=== PATIENT | male | born 1940 | race Caucasian/White ===

== ENCOUNTER 2018-01-29 15:30 | Outpatient (CLI) | payer MEDICARE | END 2018-01-29 15:31 | disposition home or self-care (01) | LOC: BICULT 15:30 | PROVIDERS: ATTEND Internal Medicine Nephrology | DX: I12.9 Hypertensive chronic kidney disease with stage 1 through stage 4 chronic kidney disease, or unspecified chronic kidney disease (principal); N18.3 Chronic kidney disease, stage 3 (moderate); N28.1 Cyst of kidney, acquired; N40.0 Benign prostatic hyperplasia without lower urinary tract symptoms | CPT/HCPCS: 76770 ==

== ENCOUNTER 2020-11-06 09:15 | Emergency (ER) | payer MEDICARE ==
[2020-11-06 10:20] LABS: #Basophils 0.1 thou/uL (0.0-0.2); #Lymphocytes 0.6 thou/uL (1.20-3.40); #Monocytes 0.7 thou/uL (0.11-0.59); #Neutrophils 12.3 thou/uL (1.40-6.50); %Basophils 0.4 % (0.0-1.0); %Eosinophils 0.1 % (0.0-10.0); %Lymphocytes 4.2 % (21.0-51.0); %Monocytes 5.1 % (0.0-10.0); %Neutrophils 90.1 % (42.0-75.0); Hemoglobin 13.6 g/dL (14.0-18.0); Mean Corpuscular HGB CONC 34.3 g/dL (32.0-36.0); Mean Corpuscular Hemoglobin 32.9 pg (27.0-31.0); Mean Platelet Volume 8.5 fL (7.4-10.4); Platelet Count 197 thou/uL (130-400); RBC Distribution Width 12.9 % (11.5-14.5); Red Blood Cell (RBC) Count 4.14 mill/uL (4.70-6.10); White Blood Cell (WBC) Count 13.7 thou/uL (4.8-10.8)
[2020-11-06 10:31] LABS: Bilirubin Negative (Negative); Blood, Urine Trace (Negative); Glucose, Urine (Dipstick) 100 mg/dL (Negative); Ketone, Urine Negative (Negative); Leukocyte Negative (Negative); Nitrite Negative (Negative); Protein, Urine (Dipstick) > or equal to 300 mg/dL (Neg-Trace); Specific Gravity, Urine 1.025 (1.005-1.030)
[2020-11-06 10:40] LABS: Clarity Hazy (Clear)
[2020-11-06 10:41] LABS: Bacteria/HPF None Seen HPF (None Seen); RBC/HPF None Seen HPF (0-3); Squamous Epithelial 0-3 HPF (0-3); WBC/HPF 0-3 HPF (0-3)
[2020-11-06 10:42] LABS: ALT (SGPT) 135 U/L (8-55); AST (SGOT) 189 U/L (5-34); Albumin 4.1 g/dL (3.4-4.8); Alkaline Phosphatase 181 U/L (40-110); Anion Gap 16 mmol/L (10-20); BUN (Urea Nitrogen) 29 mg/dL (8.4-25.7); Bilirubin, Total 1.2 mg/dL (0.2-1.2); Calc. Creatinine Clearance 0 mL/min (70-130); Calcium 9.5 mg/dL (7.8-10.44); Carbon Dioxide 25 mmol/L (23-31); Chloride 101 mmol/L (98-107); Globulin 3.3 g/dL (2.4-3.5); Glucose 189 mg/dL (83-110); Potassium 4.4 mmol/L (3.5-5.1); Protein, Total 7.4 g/dL (5.8-8.1); Sodium 138 mmol/L (136-145)
[2020-11-06 11:38] LABS: SARS-CoV-2 NAA Rapid Test Not Detected (NotDetected)
[2020-11-06] MEDS ORDERED: Dexamethasone 10 MG/ML VIAL ONE (11:57)
[2020-11-06] MEDS ORDERED: Doxycycline 100 MG CAP PO SCH (12:00)
--- NOTE | 2020-11-06 13:18 | RAD ---
AP CHEST: HISTORY: Cough and fever. COMPARISON: Exam from 2017. FINDINGS/IMPRESSION: Cardiomegaly. Mild vascular engorgement. Hazy infiltrates in the perihilar regions and in lower mo[place] g [place] is similar to 2017 and could represent mild edema, although superimposed inflammatory proces s cannot be excluded. There may be tiny effusions present. The pacemaker leads are unchanged. POS: [facility]W
[2020-11-06] MEDS ORDERED: Aspirin 325 MG TAB ONE (13:32)
[2020-11-06] MEDS ORDERED: Acetaminophen 500 MG TAB ONE (13:36)
== END 2020-11-06 13:47 | disposition home or self-care (01) ==
LOC: ERS 09:15
DX: J18.9 Pneumonia, unspecified organism (principal); I10 Essential (primary) hypertension; E11.9 Type 2 diabetes mellitus without complications; I48.91 Unspecified atrial fibrillation; J44.9 Chronic obstructive pulmonary disease, unspecified; Z20.828 Contact with and (suspected) exposure to other viral communicable diseases; Z79.899 Other long term (current) drug therapy; Z79.84 Long term (current) use of oral hypoglycemic drugs
CPT/HCPCS: 71045; 80053; 82553; 83605; 83880; 84484 ×2; 85025; 87040; 87804 ×2; 93005; U0002; 36415; 81003; 81015; J1100

== ENCOUNTER 2022-03-08 13:27 | Outpatient (CLI) | payer MEDICARE | END 2022-03-08 13:28 | disposition home or self-care (01) | LOC: BICULT 13:27 | PROVIDERS: ATTEND Internal Medicine | DX: N18.32 Chronic kidney disease, stage 3b (principal); N28.1 Cyst of kidney, acquired; N28.89 Other specified disorders of kidney and ureter | CPT/HCPCS: 76770 ==

== ENCOUNTER 2022-06-18 14:04 | Emergency (ER) | payer MEDICARE ==
[2022-06-18 14:28] LABS: #Basophils 0.1 thou/uL (0.0-0.2); #Eosinphils 0.1 thou/uL (0.0-0.7); #Lymphocytes 1.1 thou/uL (1.20-3.40); #Monocytes 0.7 thou/uL (0.11-0.59); #Neutrophils 6.2 thou/uL (1.40-6.50); %Basophils 0.9 % (0.0-1.0); %Eosinophils 1.6 % (0.0-10.0); %Lymphocytes 13.2 % (21.0-51.0); %Monocytes 8.6 % (0.0-10.0); %Neutrophils 75.6 % (42.0-75.0); Hemoglobin 14.2 g/dL (14.0-18.0); Mean Corpuscular Hemoglobin 33.7 pg (27.0-31.0); Mean Platelet Volume 8.3 fL (7.4-10.4); Platelet Count 220 thou/uL (130-400); Red Blood Cell (RBC) Count 4.21 mill/uL (4.70-6.10); White Blood Cell (WBC) Count 8.2 thou/uL (4.8-10.8)
[2022-06-18 14:48] LABS: ALT (SGPT) 21 U/L (8-55); AST (SGOT) 28 U/L (5-34); Albumin 4.2 g/dL (3.4-4.8); Alkaline Phosphatase 115 U/L (40-110); Anion Gap 18 mmol/L (10-20); BUN (Urea Nitrogen) 22 mg/dL (8.4-25.7); Bilirubin, Total 0.6 mg/dL (0.2-1.2); Calc. Creatinine Clearance 0 mL/min (70-130); Calcium 10.1 mg/dL (7.8-10.44); Carbon Dioxide 17 mmol/L (23-31); Chloride 103 mmol/L (98-107); Estimated GFR 33; Globulin 3.4 g/dL (2.4-3.5); Glucose 301 mg/dL (83-110); Lipase 60 U/L (8-78); Potassium 4.4 mmol/L (3.5-5.1); Protein, Total 7.6 g/dL (5.8-8.1); Sodium 134 mmol/L (136-145)
[2022-06-18] MEDS ORDERED: predniSONE 20 MG TAB ONE (16:25)
[2022-06-18 17:21] LABS: Troponin I 0.017 ng/mL (< 0.028)
== END 2022-06-18 18:02 | disposition home or self-care (01) ==
LOC: ERS 14:04
DX: J44.1 Chronic obstructive pulmonary disease with (acute) exacerbation (principal); I10 Essential (primary) hypertension; E78.5 Hyperlipidemia, unspecified; E11.9 Type 2 diabetes mellitus without complications; I48.91 Unspecified atrial fibrillation; I25.10 Atherosclerotic heart disease of native coronary artery without angina pectoris; Z79.899 Other long term (current) drug therapy; Z79.84 Long term (current) use of oral hypoglycemic drugs
CPT/HCPCS: 71045; 80053; 83690; 83880; 84484; 85025; 93005; 94640; 94760; J7512; J7620

== ENCOUNTER 2022-08-03 13:05 | Outpatient (CLI) | payer MEDICARE | END 2022-08-03 13:06 | disposition home or self-care (01) | LOC: BICCT 13:05 | PROVIDERS: ATTEND Internal Medicine | DX: M50.30 Other cervical disc degeneration, unspecified cervical region (principal); M47.812 Spondylosis without myelopathy or radiculopathy, cervical region | CPT/HCPCS: 72125 ==

== ENCOUNTER 2022-11-01 12:06 | Outpatient (CLI) | payer MEDICARE | END 2022-11-01 12:07 | disposition home or self-care (01) | LOC: CT 12:06 | PROVIDERS: ATTEND Internal Medicine | DX: S09.90XA Unspecified injury of head, initial encounter (principal) | CPT/HCPCS: 36415; 70450; 80053; 82607; 83036; 85025 ==

== ENCOUNTER 2023-01-15 20:45 | Emergency (ER) | payer MEDICARE ==
[2023-01-15] MEDS ORDERED: Amiodarone 150 MG/3 ML VIAL ONE (20:52)
[2023-01-15] MEDS ORDERED: EPINEPHrine 1 MG/10 ML Abboject SYRINGE ONE (20:52)
[2023-01-15] MEDS ORDERED: Calcium Chloride 1 GM/10 ML Abboject SYRINGE ONE (20:52)
[2023-01-15] MEDS ORDERED: Atropine Sulfate 1 mg/10 ml Syringe ONE (20:52)
[2023-01-15] MEDS ORDERED: NOREPINEPHRINE 8 MG/250 ML-D5W 250 ML ONE (21:00)
== END 2023-01-15 21:30 | disposition expired ==
LOC: ERS 20:45
DX: I46.9 Cardiac arrest, cause unspecified (principal)
CPT/HCPCS: 36556; 96365; 96375; 99285; J0461; J0171; J0282